=== PATIENT | male | born 1990 | race Caucasian/White ===

== ENCOUNTER → 2017-03-13 | Outpatient (CLI) | payer BC ==
--- NOTE | 2017-03-13 08:36 | Diagnostic Imaging Report ---
PROCEDURE: US abdomen complete. TECHNIQUE: Multiple real-time grayscale images were obtained over the abdomen in various projections. INDICATION: Abdominal pain, nausea. FINDINGS: The pancreas is obscured by bowel gas. The liver is fairly homogeneous. It is slightly hyperechoic and attenuates the ultrasound beam which may relate to hepatitis or fatty infiltration. No focal mass. There is hepatopetal flow in the portal vein. The gallbladder demonstrates no stones or wall thickening. Sonographic Altman sign is reportedly negative. The CBD is 6 mm in caliber, at the upper limits of normal. The right kidney is 11.7 cm, and the left kidney is 10.5 CM in length with no hydronephrosis or focal lesion. The spleen is 10.2 cm in length, normal. The abdominal aorta is visualized only distally and is normal in caliber. The IVC is largely obscured. No ascites or fluid collection seen. IMPRESSION: Increased liver echogenicity may relate to fatty infiltration or hepatitis. No focal lesion seen. Dictated by: Dictated on workstation # [id number]
== END ==
LOC: RAD 07:05
DX: R11.0 Nausea (principal); R10.11 Right upper quadrant pain; R10.31 Right lower quadrant pain
CPT/HCPCS: 76700